=== PATIENT | male | born 1960 | race Caucasian/White ===

== ENCOUNTER 2018-05-18 14:00 | Emergency (ER) | payer BC ==
[2018-05-18 14:09] VITALS: PULSE 72
--- NOTE | 2018-05-18 14:23 | ERPHSYRPT ---
- History of Present Illness Time Seen by Provider: 05/18/18 14:11 Source: patient Exam Limitations: no limitations Patient Subjective Stated Complaint: Pt states "I was at work and I dropped a hub on my right foot hitting two of my toes." Triage Nursing Assessment: Pt alert and oriented X 3, ski pwd PT ambulates with an upright steady gait, able to speak in clear full sentences. PT has bruising and tenderness to right great toe and second toe. Physician History: This is a 57-year-old white male with history of high blood pressure arrives with complaint of pain in his right first and second toes since approximately 11 :00 this morning. According to patient he was at work when a pot fell and struck his right foot he is having pain on the right foot especially near the right first and second toe. Patient denies any other complaints. Past medical history includes high blood pressure. Past surgical history patient denies. Social history patient denies tobacco alcohol or illicit drug use. Method of Injury: direct blow (hub fell on patient's right foot at work) Occurred: this morning (11:00) Quality: constant, aching Severity of Pain-Max: moderate Severity of Pain-Current: mild Lower Extremities Pain: 1st toe: right, 2nd toe: right Modifying Factors: Improves With: nothing Associated Symptoms: none Allergies/Adverse Reactions: No Known Drug Allergies Allergy (Unverified 05/18/18 14:09) Home Medications: Lisinopril [Zestril] 20 mg PO DAILY 05/18/18 [History] Hx Tetanus, Diphtheria Vaccination/Date Given: No Hx Influenza Vaccination/Date Given: No Hx Pneumococcal Vaccination/Date Given: No Immunizations Up to Date: Yes - Review of Systems Constitutional: No Fever, No Chills Eyes: No Symptoms Ears, Nose, & Throat: No Symptoms Respiratory: No Cough, No Dyspnea Cardiac: No Chest Pain, No Edema, No Syncope Abdominal/Gastrointestinal: No Symptoms Genitourinary Symptoms: No Dysuria Musculoskeletal: Injury (hub fell on patient's right foot at work.), Other ( pain right 1st and 2nd toes), No Arthralgias, No Back Pain, No Neck Pain, No Deformity, No Fall Skin: Other (small abrasion right great toe less than 1 cm proximal to right great toe nail) Neurological: No Dizziness, No Focal Weakness, No Sensory Changes Psychological: No Symptoms Endocrine: No Symptoms All Other Systems: Reviewed and Negative - Past Medical History Pertinent Past Medical History: Yes Cardiac History: Hypertension - Past Surgical History Past Surgical History: No - Social History Smoking Status: Never smoker Exposure to second hand smoke: Yes Drug Use: none Patient Lives Alone: Yes - Nursing Vital Signs Nursing Vital Signs: Initial Vital Signs Temperature 98.0 F 05/18/18 14:03 Pulse Rate 72 05/18/18 14:03 Respiratory Rate 16 05/18/18 14:03 Blood Pressure 200/89 05/18/18 14:03 O2 Sat by Pulse Oximetry 96 05/18/18 14:03 Pain Scale Pain Intensity 7 - Physical Exam General Appearance: mild distress Eyes, Ears, Nose, Throat Exam: moist mucous membranes Neck Exam: non-tender, supple Cardiovascular/Respiratory Exam: chest non-tender, normal breath sounds, regular rate/rhythm, no respiratory distress Gastrointestinal/Abdominal Exam: non-tender, guarding Back Exam: normal inspection, No vertebral tenderness Hips Exam: bilateral: non-tender, normal inspection, normal range of motion, no evidence of injury Legs Exam: bilateral leg: non-tender, normal inspection, normal range of motion , no evidence of injury Knees Exam: bilateral knee: non-tender, normal inspection, normal range of motion, no evidence of injury Ankle Exam: bilateral ankle: non-tender, normal inspection, normal range of motion, no evidence of injury Foot Exam: right foot: abrasions/lacerations (less than 1 cm abrasion proximal to right great toe nail dorsally), bone tenderness (right 1 st and second toes tender with palpation), left foot: non-tender, normal inspection, no evidence of injury, bilateral foot: normal range of motion, deformity, ecchymosis, infection, limited range of motion, nail injury, nodule, pain, soft tissue tenderness, swelling, other DTR - Lower Extremities Exam: ankle (R): 2+, ankle (L): 2+ Neuro/Tendon Exam: normal sensation, normal motor functions Mental Status Exam: alert, oriented x 3, cooperative Skin Exam: normal color, warm, dry, other (less than 1 cm abrasion proximal to right great toe nail) SpO2 Interpretation: normal (96%) SpO2: 96 - Course Nursing assessment & vital signs reviewed: Yes - Radiology Exams Right Foot X-ray Interpretation: Discussed w/ radiologist (x-ray right foot: Small heel spurs and tiny base of the first metatarsal bony exostosis laterally. No other bony, articular, or soft tissue abnormalities.) Ordered Tests: Active Orders 24 hr Category Date Time Status FOOT (MINIMUM 3 VIEWS) Stat Exams 05/18/18 14:16 Taken - Progress Progress: improved Progress Note: 05/18/18 14:24 This is a 57-year-old white male he arrives with complaint of pain to his right foot especially overlying his right great toe and second toe symptoms since 11: 00 this morning. According to the patient he had a hub fall and strike his right foot at approximately 11:00 this morning. He is having pain in the right first and second toes and right foot. He has a small abrasion less than 1 cm proximal to the dorsal right great toenail. He has full range of motion to all toes sensation intact to all toes good capillary refill to all toes. I cannot see an obvious subungual hematoma on the right toes. Patient does have an elevated blood pressure however he states this is secondary to pain. I have offered the patient Toradol for pain he really states he doesn't want any pain medications at this time. Will go ahead and obtain an x-ray of his right foot. 05/18/18 14:42 The patient's x-rays of his right foot negative fracture negative subluxation. Patient's blood pressure has improved since arrival. I've offered patient postop shoe he does not want one. I've offered the patient pain medications he does not want any. Patient is asking for copies of his x-rays, he states that the boss's wants him to see Dr. Servin. Will go ahead and provide x-rays. - Departure Time of Disposition: 14:43 Departure Disposition: Home Clinical Impression: Right foot pain Contusion of right foot Qualifiers: Encounter type: initial encounter Qualified Code(s): S90.31XA - Contusion of right foot, initial encounter Condition: Fair Critical Care Time: No Referrals: FAWN GERONIMO [Primary Care Provider] - Instructions: Contusion (DC) Additional Instructions: Return home. Tylenol every 4 hours or Motrin every 6 hours as needed for pain. Follow-up with Dr. Servin as planned. Return for acute distress or for severe symptoms.
--- NOTE | 2018-05-18 14:36 | XRAY ---
Indication: Pain following injury. Comparison: None 3 nonweightbearing views of the right foot demonstrates small heel spurs and tiny base of the 1st metatarsal bony exostosis laterally. No other bony, articular, or soft tissue abnormalities.
[2018-05-18] MEDS ORDERED: BACIGUENT PACKET TP ONE (14:44)
[2018-05-18] MEDS ORDERED: BACIGUENT PACKET ONE (14:52)
[2018-05-18 15:01] VITALS: BP 172/88; O2SAT 98
== END 2018-05-18 15:26 | disposition home or self-care (01) ==
LOC: ED 14:00
DX: S90.31XA Contusion of right foot, initial encounter (principal); M79.671 Pain in right foot; W20.8XXA Other cause of strike by thrown, projected or falling object, initial encounter; Y93.89 Activity, other specified; Y92.69 Other specified industrial and construction area as the place of occurrence of the external cause; Y99.0 Civilian activity done for income or pay
CPT/HCPCS: 73630; 99283; A9270-GY

== ENCOUNTER 2020-12-24 18:37 | Emergency (ER) | payer BC ==
[2020-12-24] MEDS ORDERED: Eye-Stream Solution ONE (18:51)
[2020-12-24] MEDS ORDERED: TETRACAINE 0.5% STERI-UNIT SOL OP ONE (18:51)
[2020-12-24] MEDS ORDERED: Fluor-I-Strip/Ful-Flo OP ONE (18:51)
[2020-12-24] MEDS ORDERED: TETRACAINE 0.5% STERI-UNIT SOL OP STA (18:51)
--- NOTE | 2020-12-24 19:22 | ERPHSYRPT ---
- History of Present Illness Time Seen by Provider: 12/24/20 18:55 Source: patient Exam Limitations: no limitations Patient Subjective Stated Complaint: Pt states "I was weedeating this morning and I had glasses on and I felt something hit my right eye. It really didnt bot her me until a couple of hours ago and now it hurts and my vision is blurry." Triage Nursing Assessment: Pt presented alert and oriented X 3, skin pwd Pt amblates with an upright steady gait, able to speak in clear full sentences pt in no apparent respriatory distress. Pt right eye watering and red. Physician History: This is a 60-year-old white male with history of hypertension on lisinopril presents with right eye burning sensation as well as sensation of foreign body after weed whipping his lawn this morning. He felt the small sensation of burning and it worsened and therefore he rinsed his eye out several times today. He does not have a headache he does not have eye pain. He only complains of a burning sensation and a sensation that there is a foreign body present within his right eye. Timing/Duration: today Location: right eye Severity: mild Apparent Injury: possibly Associated Symptoms: burning, redness, foreign body sensation, No sensitivity to light Allergies/Adverse Reactions: No Known Drug Allergies Allergy (Verified 12/24/20 18:48) Home Medications: lisinopriL [Zestril] 20 mg PO DAILY 05/18/18 [History] Hx Tetanus, Diphtheria Vaccination/Date Given: Yes Hx Influenza Vaccination/Date Given: No Hx Pneumococcal Vaccination/Date Given: No Immunizations Up to Date: Yes Travel Risk - International Travel Have you traveled outside of the country in past 3 weeks: No - Coronavirus Screening Are you exhibiting any of the following symptoms?: No Close contact with a COVID-19 positive Pt in past 14-21 Days: No - Vaccine Status Have you recieved a Covid-19 vaccination: No - Review of Systems Constitutional: No Symptoms Eyes: Eye Redness, Foreign Body Sensation Ears, Nose, & Throat: No Symptoms Respiratory: No Symptoms Cardiac: No Symptoms Abdominal/Gastrointestinal: No Symptoms Genitourinary Symptoms: No Symptoms Musculoskeletal: No Symptoms Skin: No Symptoms Neurological: No Symptoms Psychological: No Symptoms Endocrine: No Symptoms Hematologic/Lymphatic: No Symptoms Immunological/Allergic: No Symptoms All Other Systems: Reviewed and Negative - Past Medical History Pertinent Past Medical History: Yes Cardiac History: Hypertension - Past Surgical History Past Surgical History: No - Social History Smoking Status: Never smoker Exposure to second hand smoke: Yes Drug Use: none Patient Lives Alone: Yes - Nursing Vital Signs Nursing Vital Signs: Initial Vital Signs Temperature 98.2 F 12/24/20 18:43 Pulse Rate 82 12/24/20 18:43 Respiratory Rate 20 12/24/20 18:43 Blood Pressure 210/112 12/24/20 18:43 O2 Sat by Pulse Oximetry 93 L 12/24/20 18:43 Pain Scale Pain Intensity 7 - Physical Exam General Appearance: no apparent distress, alert, anxiety Vision Acuity Degree Evaluation Phase: Uncorrected Vision Acuity Right Eye: 20/50 Vision Acuity Left Eye: 20/50 Intraocular Pressure (Tonopen): right Eye Exam: right eye: corneal abrasion, bilateral eye: PERRL, EOMI Ears, Nose, Throat Exam: normal ENT inspection, moist mucous membranes Neck Exam: normal inspection, non-tender, supple, full range of motion Respiratory Exam: airway intact, No chest tenderness, No respiratory distress Gastrointestinal Exam: No tenderness Extremity Exam: normal inspection, normal range of motion, pelvis stable Neurologic: alert, oriented x 3, cooperative, brick paver II-XII nml as tested, normal mood/affect, nml cerebellar function, nml station & gait, sensation nml Skin Exam: normal color, warm, dry Lymphatic: No adenopathy SpO2 Interpretation: borderline oxygenation SpO2: 93 O2 Delivery: Room Air Procedures - Eye Procedure Time of Procedure: 18:55 Tetracaine Drops Administered: Yes Remaining Material after FB Removal: none Progress: Using fluorescein strip after placement of 4 drops of tetracaine ophthalmologic drops, black light reveals a small corneal abrasion in approximately the 8 o'clock position of the right eye. No obvious foreign body is appreciated. Patient had irrigated his eye out several times prior to arrival. - Course Nursing assessment & vital signs reviewed: Yes Ordered Tests: Medication Summary Discontinued Medications Generic Name Dose Route Start Last Admin Trade Name Freq PRN Reason Stop Dose Admin Eye Irrigation Solution Confirm 12/24/20 18:51 Eye-Stream Solution Administered 12/24/20 18:52 Dose 30 ml .ROUTE .STK-MED ONE Fluorescein Sodium Confirm 12/24/20 18:51 Bwlsy-M-Fjtjy/Ful-Dewayne Administered 12/24/20 18:52 Dose 1 mg OP .STK-MED ONE Tetracaine HCl 4 ml 12/24/20 18:51 12/24/20 18:53 Tetracaine 0.5% Steri-Unit Zuleyka OP 12/24/20 18:52 4 ml STAT STA Administration Tetracaine HCl Confirm 12/24/20 18:51 Tetracaine 0.5% Steri-Unit Zuleyka Administered 12/24/20 18:52 Dose 4 ml OP .STK-MED ONE - Progress Progress: improved, pain not gone completely, re-examined Counseled pt/family regarding: diagnosis, need for follow-up - Departure Departure Disposition: Home Clinical Impression: Corneal abrasion, right Condition: Stable Critical Care Time: No Referrals: FAWN GERONIMO [Primary Care Provider] - Additional Instructions: Warm or cool compresses to right eye as needed for comfort. Use Tylenol and ibuprofen if not allergic for pain control. If symptoms persist beyond 4 days, follow-up with an sterile process coordinator for further management. Use erythromycin ophthalmologic ointment as prescribed Prescriptions: Erythromycin Base 3.5 gm [Erythromycin 3.5 GM OPHTH.] 3.5 gm OP QID #1 tube
[2020-12-24] MEDS ORDERED: Erythromycin 1 GM OP STA (19:23)
[2020-12-24] MEDS ORDERED: Erythromycin 1 GM ONE (19:35)
[2020-12-24 19:49] VITALS: BP 168/98; PULSE 74; O2SAT 95
== END 2020-12-24 19:49 | disposition home or self-care (01) ==
LOC: ED 18:37
DX: S05.01XA Injury of conjunctiva and corneal abrasion without foreign body, right eye, initial encounter (principal); H53.8 Other visual disturbances; I10 Essential (primary) hypertension
CPT/HCPCS: 99283; A9270-GY